=== PATIENT | female | born 1950 | race Caucasian/White ===

== ENCOUNTER 2025-02-22 07:58 | Day surgery (SDC) | payer MEDICARE, SELFPAY ==
[2025-02-22] VITALS (8 sets, daily range): BP systolic 114–141; BP diastolic 59–77; PULSE 71–85; RESP 16–23; TEMP 36.4–36.6; O2SAT 95–100
--- NOTE | 2025-02-22 08:33 | EKG_ITS ---
[facility] [id number] [place] [address] Test Date: 2025-02-22 Pat Name: Daisha Antonio Department: Room: Gender: Female House Mover: Gigi NULL : 1950 Requested By: Order Number: [id number] Reading MD: Los Tomas MD Measurements Intervals [place] Rate: 87 P: [place]: QRS: 70 QRSD: 84 T: 219 QT: 340 QTc: 409 Interpretive Statements Atrial fibrillation ST & T wave abnormality, consider inferior ischemia ST & T wave abnormality, consider anterolateral ischemia NO PRIOR TRACING Electronically Signed On 02-24-2025 9:06:08 PST by Los Tomas MD
[2025-02-22] MEDS: LACTATED RINGERS 1,000 ML 42 ML IV (09:10)
[2025-02-22 09:43] LABS: Add Manual Diff / Slide Review NO; Hematocrit 38.0 % (36-46); Hemoglobin 12.7 g/dL (12.0-16.0); Lymphocytes Absolute Auto 1300 /uL (1100-4500); Mean Corpuscular HGB Conc 33.4 % (30-36); Mean Corpuscular Hemoglobin 29.7 PG (26-34); Mean Corpuscular Volume 88.9 fL (80-100); Platelet Count 238 X10^3/uL (150-400)
[2025-02-22 09:49] LABS: Alanine Aminotransferase 34 IU/L (<35); Albumin 4.3 g/dL (3.5-5.0); Albumin Globulin Ratio 1.4 (1.0-2.8); Alkaline Phosphatase 82 U/L (38-126); Blood Urea Nitrogen 21 mg/dL (7-17); Calcium 9.0 mg/dL (8.4-10.2); Carbon Dioxide 29 mmol/L (22-32); Chloride 102 mmol/L (98-107); Estimated Glomerular Filt Rate > 60 mL/min (>60); Globulin 3.1 g/dL (1.7-4.1); Glucose 89 mg/dL (70-99); Potassium 3.8 mmol/L (3.4-5.1); Sodium 139 mmol/L (137-145); Total Protein 7.4 g/dL (6.3-8.2)
[2025-02-22 09:55] LABS: HEMOLYSIS 63 (0-50)
--- NOTE | 2025-02-22 10:33 | P.OP_ITS ---
Operative Date/Time/Diagnoses Date of procedure: 02/22/25 Time of procedure: 10:39 Pre-op diagnosis: Atrial fibrillation Post-op diagnosis: same Procedure & Clinicians Procedure: Cardioversion Elective Same procedure(s) as scheduled: Yes Indications: Atrial fibrillation Surgeon: Jeremiah Negron Assisted?: No Anesthesia Type: Sedation Operative Notes Findings: Underlying rhythm of sinus rhythm. Specimen(s): none sent Applied: none Estimated Blood Loss (mL): 0 Procedure in detail: Procedure: Elective cardioversion Consent: Patient was explained risks benefits and alternatives of the procedure informed signed consent was obtained and placed in the chart. Pre-procedure: Labs were drawn cbc in his CMP. Labs were reviewed prior to the procedure Procedure: Patient was brought to the operating room area. She was placed in the bed with pacing pads placed on the anterior and posterior wall. Moderate conscious sedation was administered by the nurse manager ethics present in the room. Airway heart rate and blood pressure was monitored during the procedure. A synchronized DC current at 150 joules was administered. Patient converted to sinus rhythm but then reverted back to atrial fibrillation with controlled ventricular rate. Second attempt at 200 joules, a 3rd attempt at 200 joules was given while patient was in deep conscious sedation. Unsuccessful cardioversion as patient maintained atrial fibrillation and did not convert to sinus rhythm. Impression: Unsuccessful cardioversion. Complications: none Post-operative Condition: stable Plan for aftercare: Patient to follow up with me in the office. We will discuss elective radiofrequency ablation-pulmonary vein isolation for her symptomatic paroxysmal atrial fibrillation and acute on chronic systolic heart failure. In the meanwhile she was advised to continue with same medication. Patient was subsequently discharged home when discharge parameters were met.
== END 2025-02-22 11:16 | disposition home or self-care (01) ==
PROVIDERS: Visit Provider Internal Medicine Cardiovascular Disease
PROC: 5A2204Z Restoration of Cardiac Rhythm, Single (ICD-10-PCS; CPT 92960; principal; 2025-02-22 09:15)
DX: I48.0 Paroxysmal atrial fibrillation (principal); I10 Essential (primary) hypertension; F90.9 Attention-deficit hyperactivity disorder, unspecified type
CPT/HCPCS: 92960; 80053; 85025; 93005; 93010; J2704; J7120